=== PATIENT | female | born 2000 | race Caucasian/White ===

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

== ENCOUNTER 2022-02-18 18:26 | Emergency (ER) | payer OTHER, MEDICAID, SELFPAY ==
[2022-02-18 18:29] VITALS: BP 104/65; PULSE 95; RESP 16; TEMP 36.6; O2SAT 100
--- NOTE | 2022-02-18 18:32 | DI.RAD.S_ITS ---
PROCEDURE: XR ANKLE LT MIN 3V INDICATIONS: rolled ankle TECHNIQUE: 3 views of the ankle were acquired. COMPARISON: [facility], , ANKLE 3 VIEWS LEFT, 06/20/2017, 20:21. FINDINGS: Bones: No fractures or dislocations. Ankle mortise is normally aligned. No suspicious bony lesions. Soft tissues: No tibiotalar joint effusion. Achilles tendon appears normal. IMPRESSION: No acute osseous abnormalities. If clinical symptoms persist or clinical suspicion for pathology is high, a repeat examination in 7-10 days, or advanced imaging such as CT or MRI is suggested for further evaluation. Dictated by: Lily Edmond M.D. on 02/18/2022 at 18:44 Approved by: Lily Edmond M.D. on 02/18/2022 at 18:45
--- NOTE | 2022-02-18 20:40 | ED_ITS ---
HPI - Extremity Injury (Lower) General Chief Complaint: Extremity Injury, Lower Stated Complaint: HURT LEFT ANKLE Time Seen by Provider: 02/18/22 20:35 Source: patient Mode of arrival: Ambulatory History of Present Illness HPI Narrative: 21-year-old female nonsmoker with noncontributory medical history presents with her significant other and a chief complaint of left lateral ankle pain after stepping awkwardly in rolling it, she thinks she may have heard a pop. There is some swelling over her lateral ankle and she is ambulatory though does have some pain with ambulation. She denies any hip, knee or foot pain. She denies any numbness, tingling or weakness. She denies any history of the same and is otherwise well and free of complaint. She has no headache or blurred vision denies runny nose, sore throat or cough. She has had no chest pain or shortness of breath and denies GI symptoms such as abdominal pain or diarrhea Related Data Home Medications Medication Instructions Recorded Confirmed [CETAPHIL] TOPICAL PRN PRN #0 08/05/16 03/11/21 [HYDROCORTISONE] TOPICAL PRN PRN #0 08/05/16 03/11/21 [MULTIVITAMIN] PO QDAY #0 08/05/16 03/11/21 Previous Rx's Medication Instructions Recorded cefuroxime axetil 250 mg tablet 250 mg PO BID #20 tab 08/05/16 mupirocin 2 % topical ointment 1 bharathi TOPICAL TID #44 gm 08/05/16 fluconazole 150 mg tablet 150 mg PO ONCE #1 tab 07/29/19 azithromycin 250 mg tablet See Rx Instructions PO .COMPLEX #6 03/11/21 tab benzonatate 100 mg capsule 100 mg PO BID PRN #30 cap 03/11/21 (Rex Damico) Allergies Allergy/AdvReac Type Severity Reaction Status Date / Time No Known Allergies Allergy Uncoded 03/11/21 17:36 Review of Systems Review of Systems Narrative: GENERAL: Denies chills, fatigue, malaise, fever, sweats. HEENT: Denies sinus pain, ear pain, sore throat, difficulty swallowing, dizziness. RESPIRATORY: Denies dyspnea, cough, wheezing, hemoptysis, sputum. CARDIOVASCULAR: Denies chest pain, palpitations, orthopnea, edema, GASTROINTESTINAL: Denies nausea, vomiting, abdominal pain, diarrhea, constipation, melena. : Denies dysuria, frequency, incontinence, hematuria, urinary retention. MUSCULOSKELETAL: See HPI SKIN: Denies rash, skin lesions, or other NEUROLOGIC: Denies weakness, headache, numbness, change in speech, confusion, seizures, incoordination. PSYCHIATRIC: No concerning psychosocial issues. 12 point review of systems is negative except for those stated above Patient History Medical History Bronchitis Healthy child Social History Smoking Status: Never smoker Smoking Status: Never smoker alcohol intake frequency: 0-2 drinks per day Substance Use Type: marijuana Exam Narrative Exam Narrative: GEN: AOx3 and in mild distress EYES: Pupils are equal, round, and reactive to light and accommodation. Extraoccular muscles are intact bilaterally. There is no subconjunctival hemorrhage or exudate. CHEST: Lungs are clear to auscultation bilaterally and free of wheezes, rales, or rhonchi. Heart rate is regular rhythm, there are no murmurs, clicks, rubs, or gallops. There is no chest wall tenderness. ABD: Abdomen is soft and nontender. There is no guarding or rebound. Bowel sounds are normal in all 4 quadrants. There is no mass or organomegaly. EXT: Full but painful range of motion of left ankle with mild swelling over lateral malleolus in the distribution of anterior talofibular ligament. There is no ligamentous instability, no pain overlying talus. No pain with squeeze test. This is closed, isolated and neurovascularly intact SKIN: Warm, pink, and dry. No erythema or rash Initial Vital Signs Initial Vital Signs: Vital Signs Temperature 97.9 F 02/18/22 18:29 Pulse Rate 95 H 02/18/22 18:29 Respiratory Rate 16 02/18/22 18:29 Blood Pressure 104/65 02/18/22 18:29 Pulse Oximetry 100 02/18/22 18:29 Course Orders Ordered: ED Orders 02/18/22 18:32 XR ankle LT min 3V Stat Vital Signs Vital signs: Vital Signs - 8 hr 02/18/22 20:55 Pulse Rate 87 Respiratory Rate 16 Blood Pressure 105/63 Pulse Oximetry 99 MDM - Extremity Injury (Lower) Imaging Data Extremity x-ray #1: Radiologist's Impression: Urtasun,Pati M??21??F??2000 ? Allergy/Adv: [No Known Allergies] Close Ankle X-Ray (Signed) Rosangela Edmonddaniela - 02/18/22 Temporomandibular Joint MRI (Signed) Von Sharpe - 12/25/19 Launch?Image [address] [address] XRay Report Signed Patient: Pati Sherwood MR#: [id number] : 2000 Acct:[id number] Age/Sex: 21 / F Date of Service: 02/18/22 Loc: ED Accession Number: [id number] ?? Procedure: XR ankle LT min 3V Ordering Provider: Harshil Liz D.O. PROCEDURE:? XR ANKLE LT MIN 3V ? INDICATIONS:? rolled ankle ? TECHNIQUE:? 3 views of the ankle were acquired.? ? COMPARISON:? [facility], , ANKLE 3 VIEWS LEFT, 06/20/2017, 20:21. ? FINDINGS:? ? Bones:? No fractures or dislocations.? Ankle mortise is normally aligned.? No suspicious bony lesions.? ? Soft tissues:? No tibiotalar joint effusion.? Achilles tendon appears normal.? ? ? IMPRESSION:? No acute osseous abnormalities.? If clinical symptoms persist or clinical suspicion for pathology is high, a repeat examination in 7-10 days, or advanced imaging such as CT or MRI is suggested for further evaluation. ? Dictated by: Lily Edmond M.D. on 02/18/2022 at 18:44 ? ? Approved by: Lily Edmond M.D. on 02/18/2022 at 18:45 ? Discharge Plan Departure Patient Disposition: Home Clinical Impression: Ankle sprain Qualifiers: Encounter type: initial encounter Involved ligament of ankle: anterior talofibular ligament Laterality: left Qualified Code(s): S93.492A - Sprain of other ligament of left ankle, initial encounter Instructions: DI for Ankle Sprain Activity Restrictions/Additional Instructions: *You have been diagnosed with [left ankle sprain. As we discussed your history and physical exam are reassuring and x-ray shows no fracture or dislocation *What to do: *Please consider the use of an [id number] anti-inflammatory on a regular schedule for the next few days . *Please follow up with your primary care provider in 2-3 days, call for an appointment. Let them know you were seen in the Emergency Department and that we ask that you be seen in follow up. We will electronically transmit a record of today's note if your PCP is in our system *If you do not have a primary care provider please contact the [facility] Resource line at [phone]. They will ask some questions about your medical history and help get you set up with a doctor in the community. *Return to Emergency Department if you should have any new, worsening or concerning symptoms Prescriptions: No Action fluconazole 150 mg tablet 150 mg PO ONCE Qty: 1 0RF Rx Instructions: as a single dose azithromycin 250 mg tablet See Rx Instructions PO .COMPLEX Qty: 6 0RF Rx Instructions: take 500 mg today (day 1), then 250 mg for 4 days (days 2-5) PO benzonatate [Tessalon Perles] 100 mg capsule 100 mg PO BID PRN (Reason: cough) Qty: 30 0RF [CETAPHIL] Topical PRN PRNQty: 0 0RF [HYDROCORTISONE] Topical PRN PRNQty: 0 0RF [MULTIVITAMIN] PO QDAY Qty: 0 0RF cefuroxime axetil 250 MG tablet 250 mg PO BID Qty: 20 0RF mupirocin 2 % ointment 1 bharathi Topical TID Qty: 44 1RF Visit Report Forms: Patient Portal/API
[2022-02-18 20:55] VITALS: BP 105/63; PULSE 87; RESP 16; O2SAT 99
== END 2022-02-18 20:56 | disposition home or self-care (01) ==
PROVIDERS: Emergency Provider Emergency Medicine
DX: S93.492A Sprain of other ligament of left ankle, initial encounter (principal); X50.1XXA Overexertion from prolonged static or awkward postures, initial encounter
CPT/HCPCS: 73610; 99283

== ENCOUNTER → 2022-07-13 14:29 | Outpatient (CLI) | payer BC, SELFPAY | PROVIDERS: Visit Provider Registered Nurse | DX: J02.9 Acute pharyngitis, unspecified (principal) | CPT/HCPCS: 87070; 87077; 87147 ==

== ENCOUNTER 2022-09-22 09:19 | Emergency (ER) | payer BC, SELFPAY ==
[2022-09-22] VITALS (9 sets, daily range): BP systolic 99–111; BP diastolic 55–82; PULSE 83–114; RESP 15; TEMP 36.5–37.2; O2SAT 93–100; BMI 20.5
[2022-09-22] MEDS: ONDANSETRON 4 MG ODT SL (09:26)
[2022-09-22 10:04] LABS: Amorphous Sediment Urine 1+; Bacteria Urine None Seen; Culture Indicated Urine Cult Not Indicated; Mucus Urine 2+ (Negative); RBC Urine None Seen (0-5/HPF); Squamous Epithelial Cell Urine 5-10 /HPF (0-5/HPF); WBC Urine None Seen (0-5/HPF)
--- NOTE | 2022-09-22 14:05 | ED_ITS ---
HPI - Nausea/Vomiting/Diarrhea <Kalyan Laureano PA-C - Last Filed: 09/22/22 16:18> General Chief complaint: Nausea/Vomiting/Diarrhea Stated complaint: throwing up since last night,cannot keep liquids Time Seen by Provider: 09/22/22 13:39 Source: patient Mode of arrival: Ambulatory History of Present Illness HPI Narrative: 22-year-old female with no reported past medical history presents to the ED with 2 days of intractable vomiting. Patient states that she had her usual food, had 2 alcoholic drinks, started vomiting intractably last night after that. Patient says she was vomiting all night, until this morning. Patient is unsure of what she might have eaten that caused her symptoms. Patient also endorses 1 episode of diarrhea this morning. Denies melena, hematochezia. Patient denies fever, but endorses chills. Denies chest pain, shortness of breath. Patient endorses myalgias, especially in her lower back. Patient also endorses some dysuria this morning. Denies frequent UTIs. Endorses frequent yeast infections. No recent antibiotic use. Patient's LMP was 08/29/2022. Patient is continuing to feel nauseous in the ED after the 1st dose of Zofran. Related Data Home Medications Medication Instructions Recorded Confirmed [CETAPHIL] topical PRN PRN ##0 08/05/16 07/13/22 [HYDROCORTISONE] topical PRN PRN ##0 08/05/16 07/13/22 [MULTIVITAMIN] PO QDAY ##0 08/05/16 07/13/22 Previous Rx's Medication Instructions Recorded cefuroxime axetil 250 mg tablet 250 mg PO BID #20 tabs 08/05/16 mupirocin 2 % topical ointment 1 bharathi topical TID ##44 08/05/16 fluconazole 150 mg tablet 150 mg PO ONCE #1 tab 07/29/19 azithromycin 250 mg tablet See Rx Instructions PO .COMPLEX #6 03/11/21 tabs benzonatate 100 mg capsule 100 mg PO BID PRN cough #30 caps 03/11/21 (Rex Damico) ondansetron 4 mg disintegrating 4 mg PO Q8H PRN nausea and 09/22/22 tablet vomiting #30 tabs Allergies Allergy/AdvReac Type Severity Reaction Status Date / Time No Known Drug Allergies Allergy Verified 09/22/22 09:22 Review of Systems <Kalyan Laureano PA-C - Last Filed: 09/22/22 16:18> Review of Systems ROS Unobtainable: All systems reviewed & are unremarkable except as noted in HPI and below Constitutional Constitutional: Reports body ache(s), Reports chills, Denies fatigue, Denies fever(s), Denies frequent falls, Denies lethargy and Reports weakness Eyes Eyes: Denies change in vision, Denies eye discharge, Denies irritation and Denies loss of vision ENT Ears, Nose, Mouth, and Throat: Denies change in voice, Denies dizziness, Denies neck pain, Denies sore throat and Denies throat swelling Cardiovascular Cardiovascular: Denies chest pain, Denies irregular heart rhythm, Denies lightheadedness, Denies palpitations, Denies dyspnea, Denies dyspnea on exertion and Denies orthopnea Respiratory Respiratory: Denies cough, Denies dyspnea, Denies dyspnea on exertion and Denies wheezing Gastrointestinal Gastrointestinal: Reports abdominal pain, Denies change in bowel habits, Reports diarrhea, Reports nausea and Reports vomiting Genitourinary Genitourinary: Denies hematuria, Denies flank pain, Denies urinary incontinence and Denies urinary urgency Musculoskeletal Musculoskeletal: Reports back pain, Denies muscle weakness, Denies neck pain, Denies numbness and Denies tingling Integumentary/Breasts Skin/Breast: Denies pruritus, Denies erythema, Denies rash and Denies wounds Neurologic Neurologic: Denies behavioral changes, Denies confusion, Denies dizziness, D enies frequent falls, Denies loss of vision, Denies numbness, Denies tingling and Reports weakness Psychiatric Psychiatric: Denies anxiety, Denies behavioral changes, Denies confusion, Denies depression, Denies homicidal ideation and Denies suicidal ideation Endocrine Endocrine: Denies fatigue, Denies flushing and Denies palpitations Hematologic/Lymphatic Hematologic/Lymphatic: Denies easy bruising Allergic/Immunologic Allergic/Immunologic: Denies urticaria, Denies throat swelling and Denies wheezing Patient History <Kalyan Laureano PA-C - Last Filed: 09/22/22 16:18> Medical History Bronchitis Healthy child Social History Smoking Status: Current every day smoker Smoking Status: Current every day smoker alcohol intake frequency: holidays/special occasions only Substance Use Type: does not use Exam <Kalyan Laureano PA-C - Last Filed: 09/22/22 16:18> Narrative Exam Narrative: Const General:?cooperative, healthy appearing and comfortable HENOK Head:?normal to inspection Ears:?hearing grossly normal bilaterally Nose:?external nose normal Face and sinus:?normal facial exam and sinuses nontender Mouth:?oral mucosae normal Throat:?posterior oropharynx normal Eyes General:?appearance normal, both eyes and all related structures Neck Neck:?normal visual inspection and no lymphadenopathy noted Resp Effort & Inspection:?normal respiratory effort Auscultation:?clear to auscultation bilaterally Cardio Rate:?regular rate Rhythm:?regular rhythm GI Abdomen is soft, nondistended, nontender to palpation. There is some left-sided CVA tenderness. Neuro General:?patient alert, patient awake and patient oriented x3 Initial Vital Signs Initial Vital Signs: Vital Signs Temperature 97.7 F 09/22/22 09:22 Pulse Rate 114 H 09/22/22 09:22 Respiratory Rate 15 09/22/22 09:22 Blood Pressure 108/82 09/22/22 09:22 Pulse Oximetry 97 09/22/22 09:22 Oxygen Delivery Method 09/22/22 09:22 <Lester Chris MD - Last Filed: 09/30/22 21:54> Initial Vital Signs Initial Vital Signs: Vital Signs Temperature 97.7 F 09/22/22 09:22 Pulse Rate 114 H 09/22/22 09:22 Respiratory Rate 15 09/22/22 09:22 Blood Pressure 108/82 09/22/22 09:22 Pulse Oximetry 97 09/22/22 09:22 Oxygen Delivery Method 09/22/22 09:22 Course <Kalyan Laureano PA-C - Last Filed: 09/22/22 16:18> Orders Ordered: Discontinued Medications Sodium Chloride (Normal Saline 0.9%) 1,000 mls @ 1,000 mls/hr IV BOLUS ONE Stop: 09/22/22 15:10 Last Infusion: 09/22/22 15:51 Dose: 0 mls/hr Documented By: Admin: 09/22/22 14:46 Dose: 1,000 mls/hr Documented By: AYAN Ondansetron HCl (Ondansetron 4 Mg Odt) 4 mg SL NOW PRN PRN Reason: Nausea And Vomiting Last Admin: 09/22/22 09:26 Dose: 4 mg Documented By: PARAS Ondansetron HCl (Ondansetron 4 Mg/2 Ml Inj) 4 mg IV NOW ONE Stop: 09/22/22 14:12 Last Admin: 09/22/22 14:46 Dose: 4 mg Documented By: AYAN Vital Signs Vital signs: Vital Signs - 8 hr 09/22/22 09:22 09/22/22 13:14 09/22/22 14:14 Temperature 97.7 F 98.9 F Pulse Rate 114 H 91 H 106 H Respiratory Rate 15 Blood Pressure 108/82 111/65 108/67 Pulse Oximetry 97 96 97 Oxygen Delivery Method Room Air Room Air Room Air 09/22/22 14:35 09/22/22 14:49 09/22/22 14:49 Temperature Pulse Rate 98 H 90 Respiratory Rate Blood Pressure 99/63 Pulse Oximetry 93 100 Oxygen Delivery Method Room Air Room Air 09/22/22 15:00 09/22/22 15:01 09/22/22 15:01 Temperature Pulse Rate 83 93 H Respiratory Rate Blood Pressure 110/55 L Pulse Oximetry 100 100 Oxygen Delivery Method Room Air 09/22/22 15:30 09/22/22 16:00 09/22/22 16:00 Temperature Pulse Rate 93 H 95 H Respiratory Rate Blood Pressure 102/58 L Pulse Oximetry 100 100 Oxygen Delivery Method Room Air Room Air <Lester Chris MD - Last Filed: 09/30/22 21:54> Orders Ordered: Discontinued Medications Sodium Chloride (Normal Saline 0.9%) 1,000 mls @ 1,000 mls/hr IV BOLUS ONE Stop: 09/22/22 15:10 Last Infusion: 09/22/22 15:51 Dose: 0 mls/hr Documented By: Admin: 09/22/22 14:46 Dose: 1,000 mls/hr Documented By: AYAN Ondansetron HCl (Ondansetron 4 Mg Odt) 4 mg SL NOW PRN PRN Reason: Nausea And Vomiting Last Admin: 09/22/22 09:26 Dose: 4 mg Documented By: PARAS Ondansetron HCl (Ondansetron 4 Mg/2 Ml Inj) 4 mg IV NOW ONE Stop: 09/22/22 14:12 Last Admin: 09/22/22 14:46 Dose: 4 mg Documented By: AYAN Vital Signs Vital signs: Vital Signs - 8 hr 09/22/22 09:22 09/22/22 13:14 09/22/22 14:14 Temperature 97.7 F 98.9 F Pulse Rate 114 H 91 H 106 H Respiratory Rate 15 Blood Pressure 108/82 111/65 108/67 Pulse Oximetry 97 96 97 Oxygen Delivery Method Room Air Room Air Room Air 09/22/22 14:35 09/22/22 14:49 09/22/22 14:49 Temperature Pulse Rate 98 H 90 Respiratory Rate Blood Pressure 99/63 Pulse Oximetry 93 100 Oxygen Delivery Method Room Air Room Air 09/22/22 15:00 09/22/22 15:01 09/22/22 15:01 Temperature Pulse Rate 83 93 H Respiratory Rate Blood Pressure 110/55 L Pulse Oximetry 100 100 Oxygen Delivery Method Room Air 09/22/22 15:30 09/22/22 16:00 09/22/22 16:00 Temperature Pulse Rate 93 H 95 H Respiratory Rate Blood Pressure 102/58 L Pulse Oximetry 100 100 Oxygen Delivery Method Room Air Room Air MDM - Nausea/Vomiting/Diarrhea <Kalyan Laureano PA-C - Last Filed: 09/22/22 16:18> Lab Data Labs: Lab Results 09/22/22 09/22/22 Range/Units 09:27 15:02 Urine RBC None seen (0-5/HPF) Urine WBC None seen (0-5/HPF) Ur Squamous Epith Cells 5-10 /hpf H (0-5/HPF) Amorphous Sediment 1+ Urine Bacteria None seen (None) Urine Mucus 2+ H (Negative) Ur Culture Indicated? Cult not indicated SARS-CoV-2 (PCR) Positive H (Negative) Influenza A (RT-PCR) Flu a negative (NEGATIVE) Influenza B (RT-PCR) Flu b negative (NEGATIVE) RSV (PCR) Negative (Negative) Point of Care Testing Test Results Negative Urine Dip Bedside Urine Glucose Negative Bedside Urine Bilirubin - Negative Bedside Urine Ketone + 15 Urine Specific [place] 1.025 Bedside Urine Occult Blood - Negative Bedside Urine pH 6.0 Bedside Urine Protein +/- 15 Bedside Urine Urobilinogen - Negative Bedside Urine Nitrite - Negative Bedside Urine Leukocytes - Negative Esterase MDM Narrative Medical decision making narrative: 22-year-old female with no reported past medical history presents to the ED with 2 days of intractable vomiting. Concern for gastroenteritis versus dehydration versus versus UTI versus pyelonephritis versus COVID versus RSV versus influenza a versus other viral syndrome versus other. Will obtain UA, U preg, respiratory panel. Will give IV fluids, Zofran for symptoms. Will reassess. UA, U preg neg. Respiratory panel was positive for COVID-19 infection. Patient's symptoms improved significantly with Zofran, IV fluids. Will prescribe Zofran for home use. Recommend good hydration, supportive care with ibuprofen, Tylenol, [id number] cough medicines. ED return precautions were discussed with patient. Patient verbalized understanding. Corroborating data: Data collected from:? ? Medical records reviewed:??Yes ? Independently reviewed EKG as above: N/a ? Imaging studies independently reviewed: n/a ? Consultations: n/a ? Diagnosis: COVID-19 infection ? Disposition: see below, along with detailed discharge instructions that have been reviewed with patient as well as indications for ED re-evaluation and additional outpatient follow up <Lester Chris MD - Last Filed: 09/30/22 21:54> Lab Data Labs: Lab Results 09/22/22 09/22/22 Range/Units 09:27 15:02 Urine RBC None seen (0-5/HPF) Urine WBC None seen (0-5/HPF) Ur Squamous Epith Cells 5-10 /hpf H (0-5/HPF) Amorphous Sediment 1+ Urine Bacteria None seen (None) Urine Mucus 2+ H (Negative) Ur Culture Indicated? Cult not indicated SARS-CoV-2 (PCR) Positive H (Negative) Influenza A (RT-PCR) Flu a negative (NEGATIVE) Influenza B (RT-PCR) Flu b negative (NEGATIVE) RSV (PCR) Negative (Negative) Point of Care Testing Test Results Negative Urine Dip Bedside Urine Glucose Negative Bedside Urine Bilirubin - Negative Bedside Urine Ketone + 15 Urine Specific [place] 1.025 Bedside Urine Occult Blood - Negative Bedside Urine pH 6.0 Bedside Urine Protein +/- 15 Bedside Urine Urobilinogen - Negative Bedside Urine Nitrite - Negative Bedside Urine Leukocytes - Negative Esterase Discharge Plan Departure Patient Disposition: Home Clinical Impression: COVID-19 Instructions: COVID-19 Activity Restrictions/Additional Instructions: You were evaluated in the ED today for nausea, vomiting, all-over body aches. You tested positive for COVID-19 today. Your symptoms could be due to the COVID-19 infection and/or a stomach virus. Your responded well to Zofran in the ED and your nausea was well controlled. You also received some IV fluids. You may continue to take Zofran at home for nausea. Please ensure good hydration and rest. You may take ibuprofen, Tylenol, [id number] cough medicine for your symptoms. Return to the ED if you experience any chest pain, shortness of breath. Prescriptions: New ondansetron 4 mg tablet,disintegrating 4 mg PO Q8H PRN (Reason: nausea and vomiting) Qty: 30 0RF No Action fluconazole 150 mg tablet 150 mg PO ONCE Qty: 1 0RF Rx Instructions: as a single dose azithromycin 250 mg tablet See Rx Instructions PO .COMPLEX Qty: 6 0RF Rx Instructions: take 500 mg today (day 1), then 250 mg for 4 days (days 2-5) PO benzonatate [Tessalon Perles] 100 mg capsule 100 mg PO BID PRN (Reason: cough) Qty: 30 0RF [CETAPHIL] Topical PRN PRNQty: 0 [HYDROCORTISONE] Topical PRN PRNQty: 0 [MULTIVITAMIN] PO QDAY Qty: 0 cefuroxime axetil 250 MG tablet 250 mg PO BID Qty: 20 0RF mupirocin 2 % ointment 1 bharathi Topical TID Qty: 44 1RF Stand Alone Forms: Patient Portal/API <Lester Chris MD - Last Filed: 09/30/22 21:54> [facility]: I was immediately available in the department for consultation. Documentation has been reviewed. I agree with assessment and plan.
[2022-09-22] MEDS: ONDANSETRON 4 MG/2 ML INJ IV (14:46)
[2022-09-22] MEDS: SODIUM CHLORIDE 0.9% 1,000 ML 1000 ML IV (14:46)
[2022-09-22 15:49] LABS: Influenza A - CEPHEID Flu A NEGATIVE (NEGATIVE); Influenza B - CEPHEID Flu B NEGATIVE (NEGATIVE); Respiratory Syncytial Virus Negative (Negative)
[2022-09-22 15:59] LABS: COVID-19 CEPHEID 4-PLEX PCR POSITIVE (Negative)
== END 2022-09-22 16:20 | disposition home or self-care (01) ==
PROVIDERS: Emergency Medicine; Emergency Provider Student in an Organized Health Care Education/Training Program
DX: U07.1 COVID-19 (principal); R11.2 Nausea with vomiting, unspecified
CPT/HCPCS: 0241U; 81003; 81015; 81025; 87086; 96374; 99284; J2405